=== PATIENT | male | born 1970 | race Caucasian/White ===

== ENCOUNTER 2020-04-11 09:29 | Emergency (ER) | payer OTHER ==
[~2020-04-11] VITALS: Ht 180.3 cm; Wt 93.0 kg
[2020-04-11] MEDS ORDERED: CYCLOBENZAPRINE10 MG PO (10:50)
[2020-04-11] MEDS ORDERED: NORCO 5-325 TA1 EACH PO (10:50)
== END 2020-04-11 11:06 | disposition home or self-care (01) ==
LOC: ED 09:29
DX: R07.89 Other chest pain (principal); W01.0XXA Fall on same level from slipping, tripping and stumbling without subsequent striking against object, initial encounter
CPT/HCPCS: 71046; 99284-25

== ENCOUNTER 2022-02-13 18:12 | Emergency (ER) | payer OTHER ==
[~2022-02-13] VITALS: Ht 180.3 cm; Wt 93.0 kg
[~2022-02-13 18:12] MED LIST: CYCLOBENZAPRINE10 MG PO; NORCO 5-325 TA1 EACH PO
== END 2022-02-13 20:55 | disposition home or self-care (01) ==
LOC: ED 18:12
DX: F10.129 Alcohol abuse with intoxication, unspecified (principal)
CPT/HCPCS: 36415; 80053; 85025; 99284; G0480; J7030